=== PATIENT | female | born 1965 | race African-American/Black ===

== ENCOUNTER 2023-11-07 00:40 | Emergency (ER) | payer SELFPAY ==
[2023-11-07] MEDS ORDERED: Ibuprofen 800 MG TAB ONE (02:23)
[2023-11-07] MEDS ORDERED: Amoxicillin/Potassium Clav 875 MG TAB ONE (02:23)
== END 2023-11-07 02:25 ==
LOC: ERS 00:40
DX: S01.511A Laceration without foreign body of lip, initial encounter (principal); Y04.0XXA Assault by unarmed brawl or fight, initial encounter
CPT/HCPCS: 99283